=== PATIENT | male | born 1940 | race Two or more races ===

== ENCOUNTER 2023-01-06 16:17 | Inpatient (IN) | payer OTHER ==
[~2023-01-06] VITALS: Ht 172.7 cm; Wt 54.4 kg
[2023-01-06] MEDS ORDERED: NOREPINEPHRINE 8MG/250ML PMX 250 ML IV STA ×2 (16:28→16:42)
[2023-01-06] MEDS ORDERED: PHENYLEPHRINE 50 MG in DEXT 5% WATER 245 ML IV STA ×2 (16:28→16:42)
[2023-01-06] MEDS ORDERED: PIPERACILLIN/TAZ 3.375G PREMIX 50 ML IV ONE (16:30)
[2023-01-06] MEDS ORDERED: DEXTROSE 5% WATER 1,000 ML IV ONE (16:30)
[2023-01-06] MEDS ORDERED: SODIUM CHLORIDE 0.9% 1000ML BAG (SEPSIS BOLUS) IV ONE (16:30)
[2023-01-06] MEDS ORDERED: PIPERACILLIN/TAZ 3.375G PREMIX 50 ML IV NR (16:30)
[2023-01-06] MEDS ORDERED: VANCOMYCIN 1G PREMIX 200 ML IV NR (16:30)
[2023-01-06] MEDS ORDERED: HYDROCORTISONE SOD SUCCINATE 100 MG/2 ML VIAL IV ONE (16:30)
[2023-01-06] MEDS ORDERED: VANCOMYCIN 1G PREMIX 200 ML IV ONE (16:30)
[2023-01-06] MEDS ORDERED: DEXTROSE 50% WATER 50ML SYRINGE IV ONE (16:45)
[2023-01-06] MEDS ORDERED: MIDAZOLAM 100MG/100ML PMX 100 ML IV PRN (16:45)
[2023-01-06] MEDS ORDERED: FENTANYL 2500MCG/250ML PMX 250 ML IV ONE ×2 (16:45)
[2023-01-06] MEDS ORDERED: FENTANYL CITRATE/PF 50MCG/ML 2ML VIAL IV ONE (16:45)
[2023-01-06] MEDS ORDERED: NOREPINEPHRINE 8 MG in DEXTROSE 5% WATER 250 ML IV SCH (17:00)
[2023-01-06 17:16] LABS: BG BASE EXCESS -12.5 mmol/L (-2.0-2.0); BG CARBOXYHEMOGLOBIN 0.3 % (0.5-1.5); BG DEOXYHEMOGLOBIN 0.2 % (0.0-5.0); BG FRACTION INSPIRED OXYGEN 100; BG METHEMOGLOBIN 0.2 % (0.0-1.5); BG OXYGEN SATURATION 99.8 % (92.0-98.5); BG OXYHEMOGLOBIN 99.3 % (94.0-97.0); BG PCO2 23.9 mmHg (35.0-45.0); BG PH 7.318 (7.350-7.450); BG PO2 409.6 mmHg (75.0-100.0); BG SAMPLE SITE RIGHT RADIAL; BG VENT MODE VENT - AC
[2023-01-06 18:18] LABS: HEMATOCRIT. 36.1 % (42.0-52.0); HEMOGLOBIN. 12.1 g/dL (14.0-18.0); MEAN CORPUSCULAR HEMOGLOBIN 29.7 pg (28.0-32.0); MEAN CORPUSCULAR VOLUME 88.9 fL (80.0-94.0); MEAN PLATELET VOLUME 7.8 fl (7.4-10.4); PLATELET 98 x1000/uL (130-400); RED BLOOD CELL COUNT 4.06 mill/uL (4.7-6.1); RED CELL DISTRIBUTION WIDTH 16.4 % (11.6-14.6)
[2023-01-06 18:20] LABS: CHLORIDE 87 mEq/L (98-107)
[2023-01-06 18:45] LABS: ETHANOL BLOOD < 10 mg/dL
[2023-01-06 19:08] LABS: PROTHROMBIN TIME 17.5 sec (9.6-11.0)
[2023-01-06 19:09] LABS: D-DIMER > 35.20 mg/L FEU (<0.50); INR 1.7
[2023-01-06 19:36] LABS: PLATELET ESTIMATE NORMAL
[2023-01-06] MEDS ORDERED: CLONIDINE 0.1MG TABLET PO PRN (20:15)
[2023-01-06] MEDS ORDERED: INSULIN LISPRO 100 UNITS/ML SUBCUT NR (20:15)
[2023-01-06] MEDS ORDERED: ACETAMINOPHEN 325MG TABLET PO PRN ×2 (20:15)
[2023-01-06] MEDS ORDERED: DEXTROSE 50% WATER 50ML SYRINGE IV PRN (20:15)
[2023-01-06] MEDS ORDERED: SODIUM BICARBONATE 8.4% 1 MEQ/ML 50ML SYR IV NR (20:15)
[2023-01-06] MEDS ORDERED: INSULIN LISPRO 100 UNITS/ML SUBCUT SCH (21:00)
[2023-01-06] MEDS ORDERED: METHYLPREDNISOLONE SOD SUCC 125 MG/2 ML VIAL IV SCH (21:00)
[2023-01-06 21:15] LABS: T4 FREE 1.63 ng/dL (0.76-1.46)
[2023-01-06 21:37] LABS: VITAMIN B12 SERUM 1151 pg/mL (211-911)
[2023-01-06 21:53] LABS: FERRITIN 1526 ng/mL (22-322)
[2023-01-06] MEDS: HYDROCORTISONE SOD SUCCINATE 100 MG/2 ML VIAL IV SCH (22:15)
[2023-01-06 22:26] LABS: CORTISOL > 75.0 ucg/dL
[2023-01-06 22:34] LABS: CLARITY URINE TURBID (CLEAR); COLOR URINE YELLOW (YELLOW); KETONES URINE NEGATIVE (NEGATIVE); LEUKOCYTE ESTERASE URINE 3+ (NEGATIVE); NITRITE URINE NEGATIVE (NEGATIVE); OCCULT BLOOD URINE 3+ (NEGATIVE); PROTEIN URINE 3+ (NEGATIVE); SPECIFIC GRAVITY URINE 1.011 (1.005-1.030); UROBILINOGEN URINE 0.2 E.U./dL (0.2-1.0)
[2023-01-06 22:39] LABS: SODIUM URINE RANDOM 90 mEq/L
[2023-01-06] MEDS: BLOOD SUGAR DIAGNOSTIC STRIP TEST SCH (22:45)
[2023-01-06] MEDS ORDERED: IOHEXOL-300 100 ML BOTTLE ONE (22:50)
[2023-01-06] MEDS: CEFEPIME 2,000 MG in DEXT 5% WATER 100 ML IV SCH (23:40)
[2023-01-07] VITALS (97 sets, daily range): BP systolic 57–162; BP diastolic 20–100
[2023-01-07 00:21] LABS: CREATINE KINASE MB FRACTION 159.1 ng/mL (0.5-3.6)
[2023-01-07] MEDS: DEXT 5%/0.9% NACL 1,000 ML IV SCH (01:58)
[2023-01-07 02:20] LABS: BG BASE EXCESS -10.4 mmol/L (-2.0-2.0); BG CARBOXYHEMOGLOBIN 0.8 % (0.5-1.5); BG FRACTION INSPIRED OXYGEN 100; BG HCO3 ACT 12.3 mmol/L (22.0-26.0); BG METHEMOGLOBIN 0.1 % (0.0-1.5); BG OXYHEMOGLOBIN 99.1 % (94.0-97.0); BG PCO2 20.9 mmHg (35.0-45.0); BG PH 7.388 (7.350-7.450); BG PO2 406.8 mmHg (75.0-100.0); BG SAMPLE SITE RIGHT FEMORAL; BG TOTAL HEMOGLOBIN 13.6 g/dL (12.0-18.0); BG TOTAL RESPIRATORY RATE 21 b/min; BG VENT MODE VENT - AC
[2023-01-07 02:24] LABS: CHLORIDE 87 mEq/L (98-107)
[2023-01-07] MEDS ORDERED: SODIUM BICARBONATE 8.4% 1 MEQ/ML 50ML SYR IV NR (02:45)
[2023-01-07] MEDS ORDERED: AZITHROMYCIN 500 MG in DEXT 5% WATER 250 ML IV SCH (03:00)
[2023-01-07] MEDS: PROPOFOL 10MG/ML 100ML 100 ML IV PRN ×2 (03:02→17:38)
[2023-01-07] MEDS: AZITHROMYCIN 500 MG in DEXT 5% WATER 250 ML IV SCH (03:24)
[2023-01-07 05:49] LABS: HEMATOCRIT. 39.3 % (42.0-52.0); HEMOGLOBIN. 13.3 g/dL (14.0-18.0); MEAN CORPUSCULAR HEMOGLOBIN 29.6 pg (28.0-32.0); MEAN CORPUSCULAR VOLUME 87.5 fL (80.0-94.0); MEAN PLATELET VOLUME 7.4 fl (7.4-10.4); PLATELET 76 x1000/uL (130-400); RED BLOOD CELL COUNT 4.49 mill/uL (4.7-6.1)
[2023-01-07] MEDS: HYDROCORTISONE SOD SUCCINATE 100 MG/2 ML VIAL IV SCH ×3 (05:55→20:49)
[2023-01-07 06:07] LABS: CHLORIDE 85 mEq/L (98-107)
[2023-01-07] MEDS: BLOOD SUGAR DIAGNOSTIC STRIP TEST SCH ×4 (06:27→20:49)
[2023-01-07 06:31] LABS: BETA HYDROXYBUTYRATE 0.1 mMol/L (0.0-0.3); CREATINE KINASE MB FRACTION 139.1 ng/mL (0.5-3.6); HDL CHOLESTEROL 53 mg/dL (40-59); LDL CHOLESTEROL 25 mg/dL (5-100)
[2023-01-07] MEDS: PHENYLEPHRINE 100 MG in DEXT 5% WATER 240 ML IV PRN ×2 (06:37→16:57)
[2023-01-07 06:41] LABS: CREATINE KINASE 6395 IU/L (39-308)
[2023-01-07 08:59] LABS: BG BASE EXCESS -7.1 mmol/L (-2.0-2.0); BG CARBOXYHEMOGLOBIN 1.3 % (0.5-1.5); BG DEOXYHEMOGLOBIN 0.5 % (0.0-5.0); BG FRACTION INSPIRED OXYGEN 50; BG HCO3 ACT 14.6 mmol/L (22.0-26.0); BG METHEMOGLOBIN 0.1 % (0.0-1.5); BG OXYGEN SATURATION 99.5 % (92.0-98.5); BG OXYHEMOGLOBIN 98.1 % (94.0-97.0); BG PCO2 21.8 mmHg (35.0-45.0); BG PH 7.445 (7.350-7.450); BG PO2 179.8 mmHg (75.0-100.0); BG SAMPLE SITE RIGHT BRACHIAL; BG TOTAL HEMOGLOBIN 14.6 g/dL (12.0-18.0); BG VENT MODE VENT - AC
[2023-01-07] MEDS ORDERED: ASPIRIN 81MG EC TABLET PO SCH (09:00)
[2023-01-07] MEDS ORDERED: ENOXAPARIN 30MG/0.3ML SYR SUBCUT SCH (09:00)
[2023-01-07 09:08] LABS: PLATELET ESTIMATE DECREASED
[2023-01-07] MEDS: IPRATROPIUM/ALBUTEROL 0.5-3(2.5)MG/3ML NEB NEB SCH ×3 (09:10→21:18)
[2023-01-07 09:17] LABS: *AMPHETAMINES SCREEN URINE NEGATIVE (NEGATIVE); *BARBITURATES SCREEN URINE NEGATIVE (NEGATIVE); *BENZODIAZEPINES SCREEN URINE NEGATIVE (NEGATIVE); *COCAINE SCREEN URINE NEGATIVE (NEGATIVE); CANNABINOID URINE SCREEN NEGATIVE (NEGATIVE); METHADONE URINE SCREEN NEGATIVE (NEGATIVE); OPIATES URINE SCREEN NEGATIVE (NEGATIVE); PHENCYCLIDINE URINE SCREEN NEGATIVE (NEGATIVE)
[2023-01-07] MEDS: FAMOTIDINE 20MG/2ML VIAL IV SCH (09:46)
[2023-01-07 12:44] LABS: T4 FREE 1.93 ng/dL (0.76-1.46)
[2023-01-07] MEDS: METRONIDAZOLE 500MG TABLET PO SCH ×2 (13:09→20:49)
[2023-01-07] MEDS ORDERED: SODIUM CHLORIDE 3% 250 ML IV ONE (15:00)
[2023-01-07] MEDS: CEFEPIME 2,000 MG in DEXT 5% WATER 100 ML IV SCH (22:46)
[2023-01-07] MEDS ORDERED: AMIKACIN SULFATE 500 MG in SODIUM CHLORIDE 0.9% 100 ML IV NR (23:00)
[2023-01-08] VITALS (96 sets, daily range): BP systolic 91–149; BP diastolic 55–93
[2023-01-08] MEDS: AZITHROMYCIN 500 MG in DEXT 5% WATER 250 ML IV SCH (02:24)
[2023-01-08] MEDS: IPRATROPIUM/ALBUTEROL 0.5-3(2.5)MG/3ML NEB NEB SCH ×4 (02:42→20:17)
[2023-01-08] MEDS: PROPOFOL 10MG/ML 100ML 100 ML IV PRN ×2 (03:00→13:37)
[2023-01-08] MEDS: DEXT 5%/0.9% NACL 1,000 ML IV SCH (03:00)
[2023-01-08] MEDS: PHENYLEPHRINE 100 MG in DEXT 5% WATER 240 ML IV PRN ×2 (03:36→13:36)
[2023-01-08] MEDS: METRONIDAZOLE 500MG TABLET PO SCH ×3 (05:00→21:49)
[2023-01-08] MEDS: HYDROCORTISONE SOD SUCCINATE 100 MG/2 ML VIAL IV SCH ×3 (05:00→21:49)
[2023-01-08 05:23] LABS: HEMATOCRIT. 33.8 % (42.0-52.0); HEMOGLOBIN. 11.6 g/dL (14.0-18.0); MEAN CORPUSCULAR HEMOGLOBIN 29.5 pg (28.0-32.0); MEAN CORPUSCULAR VOLUME 86.5 fL (80.0-94.0); MEAN PLATELET VOLUME 7.9 fl (7.4-10.4); RED BLOOD CELL COUNT 3.91 mill/uL (4.7-6.1); RED CELL DISTRIBUTION WIDTH 16.6 % (11.6-14.6)
[2023-01-08] MEDS ORDERED: VANCOMYCIN HCL 1 GM/VIAL PO SCH (06:00)
[2023-01-08] MEDS: BLOOD SUGAR DIAGNOSTIC STRIP TEST SCH ×4 (06:30→20:59)
[2023-01-08 06:41] LABS: PLATELET 25 x1000/uL (130-400)
[2023-01-08] MEDS: LACTOBACILLUS GG CAPSULE PO SCH (08:34)
[2023-01-08] MEDS: FAMOTIDINE 20MG/2ML VIAL IV SCH (08:34)
[2023-01-08] MEDS: VANCOMYCIN 1000MG/20ML ORAL SOLN PO SCH ×2 (11:21→18:01)
[2023-01-08 11:49] LABS: PLATELET ESTIMATE MARKEDLY DECREASED
[2023-01-08 15:38] LABS: BG BASE EXCESS -9.9 mmol/L (-2.0-2.0); BG CARBOXYHEMOGLOBIN 0.3 % (0.5-1.5); BG DEOXYHEMOGLOBIN 0.6 % (0.0-5.0); BG FRACTION INSPIRED OXYGEN 40; BG HCO3 ACT 13.5 mmol/L (22.0-26.0); BG METHEMOGLOBIN 0.2 % (0.0-1.5); BG OXYGEN SATURATION 99.4 % (92.0-98.5); BG OXYHEMOGLOBIN 98.9 % (94.0-97.0); BG PCO2 23.8 mmHg (35.0-45.0); BG PH 7.373 (7.350-7.450); BG PO2 247.7 mmHg (75.0-100.0); BG SAMPLE SITE RIGHT RADIAL; BG TOTAL HEMOGLOBIN 12.3 g/dL (12.0-18.0); BG VENT MODE VENT - AC
[2023-01-08] MEDS: CITRIC ACID/SODIUM CITRATE SOLN 30ML UDC PO SCH ×2 (17:38→18:01)
[2023-01-08] MEDS: CEFEPIME 2,000 MG in DEXT 5% WATER 100 ML IV SCH (21:49)
[2023-01-09] VITALS (95 sets, daily range): BP systolic 89–130; BP diastolic 56–86
[2023-01-09] MEDS: PROPOFOL 10MG/ML 100ML 100 ML IV PRN ×2 (00:22→08:20)
[2023-01-09] MEDS: DEXT 5%/0.9% NACL 1,000 ML IV SCH (00:22)
[2023-01-09] MEDS: VANCOMYCIN 1000MG/20ML ORAL SOLN PO SCH ×4 (00:22→18:00)
[2023-01-09] MEDS: PHENYLEPHRINE 100 MG in DEXT 5% WATER 240 ML IV PRN (00:22)
[2023-01-09] MEDS: IPRATROPIUM/ALBUTEROL 0.5-3(2.5)MG/3ML NEB NEB SCH ×3 (02:00→14:53)
[2023-01-09] MEDS: AZITHROMYCIN 500 MG in DEXT 5% WATER 250 ML IV SCH (02:59)
[2023-01-09 05:40] LABS: HEMATOCRIT. 30.4 % (42.0-52.0); HEMOGLOBIN. 10.3 g/dL (14.0-18.0); MEAN CORPUSCULAR HEMOGLOBIN 29.1 pg (28.0-32.0); MEAN CORPUSCULAR VOLUME 86.1 fL (80.0-94.0); MEAN PLATELET VOLUME 8.8 fl (7.4-10.4); RED BLOOD CELL COUNT 3.53 mill/uL (4.7-6.1); RED CELL DISTRIBUTION WIDTH 16.7 % (11.6-14.6)
[2023-01-09 05:49] LABS: PLATELET 18 x1000/uL (130-400)
[2023-01-09] MEDS: BLOOD SUGAR DIAGNOSTIC STRIP TEST SCH ×4 (06:28→21:00)
[2023-01-09] MEDS: HYDROCORTISONE SOD SUCCINATE 100 MG/2 ML VIAL IV SCH ×3 (06:31→21:34)
[2023-01-09] MEDS: METRONIDAZOLE 500MG TABLET PO SCH ×3 (06:32→21:34)
[2023-01-09] MEDS ORDERED: POTASSIUM CHLORIDE IV ONE (08:00)
[2023-01-09] MEDS ORDERED: NACL IV ONE (08:00)
[2023-01-09] MEDS ORDERED: DEXT IV ONE (08:00)
[2023-01-09] MEDS: CITRIC ACID/SODIUM CITRATE SOLN 30ML UDC PO SCH ×2 (08:20→13:01)
[2023-01-09] MEDS: FAMOTIDINE 20MG/2ML VIAL IV SCH (08:20)
[2023-01-09 09:17] LABS: BG BASE EXCESS -5.6 mmol/L (-2.0-2.0); BG CARBOXYHEMOGLOBIN 0.4 % (0.5-1.5); BG DEOXYHEMOGLOBIN 0.8 % (0.0-5.0); BG FRACTION INSPIRED OXYGEN 40; BG HCO3 ACT 17.3 mmol/L (22.0-26.0); BG METHEMOGLOBIN 0.1 % (0.0-1.5); BG OXYGEN SATURATION 99.2 % (92.0-98.5); BG OXYHEMOGLOBIN 98.7 % (94.0-97.0); BG PCO2 26.1 mmHg (35.0-45.0); BG PEEP (cmH2O) 0 cmH2O; BG PH 7.439 (7.350-7.450); BG SAMPLE SITE RIGHT BRACHIAL; BG TOTAL HEMOGLOBIN 11.1 g/dL (12.0-18.0); BG VENT MODE VENT - AC
[2023-01-09 09:53] LABS: PLATELET ESTIMATE MARKEDLY DECREASED
[2023-01-09] MEDS: LACTOBACILLUS GG CAPSULE PO SCH (10:00)
[2023-01-09] MEDS ORDERED: POTASSIUM CHLORIDE INJ 40 MEQ in DEXT 5% WATER 250 ML IV ONE (10:15)
[2023-01-09] MEDS: MORPHINE SULFATE 250 MG in DEXT 5% WATER 225 ML IV PRN ×2 (17:06→23:54)
[2023-01-09] MEDS: CEFEPIME 2,000 MG in DEXT 5% WATER 100 ML IV SCH (21:34)
[2023-01-10] VITALS (37 sets, daily range): BP systolic 83–119; BP diastolic 36–63
[2023-01-10] MEDS: DEXT 5%/0.9% NACL 1,000 ML IV SCH (01:00)
[2023-01-10] MEDS: AZITHROMYCIN 500 MG in DEXT 5% WATER 250 ML IV SCH (02:07)
[2023-01-10] MEDS: MORPHINE SULFATE 250 MG in DEXT 5% WATER 225 ML IV PRN (05:36)
[2023-01-10] MEDS: METRONIDAZOLE 500MG TABLET PO SCH ×2 (06:00→14:00)
[2023-01-10] MEDS: HYDROCORTISONE SOD SUCCINATE 100 MG/2 ML VIAL IV SCH (06:00)
[2023-01-10] MEDS: BLOOD SUGAR DIAGNOSTIC STRIP TEST SCH ×3 (06:30→17:20)
[2023-01-10] MEDS: FAMOTIDINE 20MG/2ML VIAL IV SCH (09:00)
[2023-01-10] MEDS: LACTOBACILLUS GG CAPSULE PO SCH (09:00)
[2023-01-10 13:14] LABS: HEMATOCRIT. 35.1 % (42.0-52.0); HEMOGLOBIN. 11.7 g/dL (14.0-18.0); MEAN CORPUSCULAR HEMOGLOBIN 29.3 pg (28.0-32.0); MEAN CORPUSCULAR VOLUME 88.2 fL (80.0-94.0); MEAN PLATELET VOLUME 9.1 fl (7.4-10.4); RED BLOOD CELL COUNT 3.98 mill/uL (4.7-6.1); RED CELL DISTRIBUTION WIDTH 17.4 % (11.6-14.6)
[2023-01-10 13:30] LABS: PLATELET 18 x1000/uL (130-400)
[2023-01-10 14:00] LABS: PLATELET ESTIMATE MARKEDLY DECREASED
[2023-01-10] MEDS ORDERED: IPRATROPIUM BROMIDE (0.02%) 0.5MG/2.5ML NEB HHN SCH (18:00)
[2023-01-10] MEDS ORDERED: ALBUTEROL (0.083%) 2.5MG/3ML NEB HHN SCH (18:00)
[2023-01-10] MEDS: CEFEPIME 2,000 MG in DEXT 5% WATER 100 ML IV SCH (22:00)
[2023-01-11] MEDS: DEXT 5%/0.9% NACL 1,000 ML IV SCH (01:00)
[2023-01-11 07:54] LABS: HEMATOCRIT. 38.3 % (42.0-52.0); HEMOGLOBIN. 12.5 g/dL (14.0-18.0); MEAN CORPUSCULAR VOLUME 89.1 fL (80.0-94.0); MEAN PLATELET VOLUME 9.7 fl (7.4-10.4); RED CELL DISTRIBUTION WIDTH 17.4 % (11.6-14.6)
[2023-01-11 07:59] LABS: PLATELET 23 x1000/uL (130-400)
[2023-01-11 08:00] VITALS: BP 166/100
[2023-01-11] MEDS: MORPHINE SULFATE 250 MG in DEXT 5% WATER 225 ML IV PRN (10:20)
[2023-01-11 12:00] VITALS: BP 86/46
[2023-01-11] MEDS ORDERED: POTASSIUM CHLORIDE INJ 40 MEQ in DEXT 5% WATER 500 ML IV NR (12:00)
[2023-01-11 12:24] LABS: PLATELET ESTIMATE MARKEDLY DECREASED
[2023-01-11 16:00] VITALS: BP 79/40
[2023-01-12 12:00] VITALS: BP 171/135
[2023-01-12] MEDS: METRONIDAZOLE 500MG TABLET PO SCH (14:00)
[2023-01-12 16:00] VITALS: BP 92/50
[2023-01-12] MEDS: VANCOMYCIN 1000MG/20ML ORAL SOLN PO SCH (23:37)
[2023-01-13] VITALS: BP 116/59
[2023-01-13] MEDS: DEXT 5%/0.9% NACL 1,000 ML IV SCH (01:00)
[2023-01-13 04:00] VITALS: BP 111/53
[2023-01-13] MEDS: VANCOMYCIN 1000MG/20ML ORAL SOLN PO SCH ×2 (06:00→12:00)
[2023-01-13 08:00] VITALS: BP 111/55
[2023-01-13 12:00] VITALS: BP 116/61
[2023-01-13 15:47] VITALS: BP 107/55
[2023-01-14] MEDS: DEXT 5%/0.9% NACL 1,000 ML IV SCH (01:00)
[2023-01-14 08:00] VITALS: BP 125/59
[2023-01-14 12:00] VITALS: BP 114/58
[2023-01-14 16:00] VITALS: BP 114/62
[2023-01-14] MEDS: MORPHINE SULFATE 250 MG in DEXT 5% WATER 225 ML IV PRN (16:46)
[2023-01-14 20:00] VITALS: BP 118/58
[2023-01-14 22:00] VITALS: BP 116/56
[2023-01-15] VITALS (9 sets, daily range): BP systolic 103–141; BP diastolic 45–62
[2023-01-15] MEDS: DEXT 5%/0.9% NACL 1,000 ML IV SCH (18:00)
[2023-01-16] VITALS: BP 103/50
[2023-01-16] MEDS: DEXT 5%/0.9% NACL 1,000 ML IV SCH (01:00)
[2023-01-16 05:00] VITALS: BP 116/56
[2023-01-16 08:00] VITALS: BP 130/61
[2023-01-16 12:00] VITALS: BP 124/63
[2023-01-16 16:00] VITALS: BP 113/57
[2023-01-16 20:00] VITALS: BP 108/59
[2023-01-17] VITALS: BP 115/55
[2023-01-17] MEDS: DEXT 5%/0.9% NACL 1,000 ML IV SCH (01:00)
[2023-01-17 04:00] VITALS: BP 123/65
[2023-01-17 08:00] VITALS: BP 114/59
[2023-01-17 12:00] VITALS: BP 100/70
[2023-01-17 16:00] VITALS: BP 126/64
[2023-01-17 20:00] VITALS: BP 111/57
[2023-01-18] VITALS: BP 115/59
[2023-01-18] MEDS: DEXT 5%/0.9% NACL 1,000 ML IV SCH (01:00)
[2023-01-18 04:00] VITALS: BP 113/61
[2023-01-18 08:00] VITALS: BP 97/55
[2023-01-18 12:00] VITALS: BP 100/60
[2023-01-18 16:00] VITALS: BP 98/44
[2023-01-18] MEDS ORDERED: MORPHINE SULFATE 250 MG in DEXT 5% WATER 225 ML IV PRN (19:15)
[2023-01-18 20:00] VITALS: BP 98/52
[2023-01-19] VITALS: BP 95/52
[2023-01-19] MEDS: DEXT 5%/0.9% NACL 1,000 ML IV SCH (01:00)
[2023-01-19 04:00] VITALS: BP 94/50
[2023-01-19 08:00] VITALS: BP 96/51
[2023-01-19 12:00] VITALS: BP 86/45
[2023-01-19 16:00] VITALS: BP 81/52
[2023-01-19 20:00] VITALS: BP 69/42
[2023-01-20] VITALS: BP 85/49
[2023-01-20] MEDS: DEXT 5%/0.9% NACL 1,000 ML IV SCH (00:53)
[2023-01-20 04:00] VITALS: BP 64/43
[2023-01-20] MEDS: MORPHINE SULFATE 250 MG in DEXT 5% WATER 225 ML IV SCH (04:57)
[2023-01-20 08:00] VITALS: BP 83/48
[2023-01-20 12:00] VITALS: BP 81/44
[2023-01-20 16:00] VITALS: BP 84/47
[2023-01-20 20:00] VITALS: BP 86/47
[2023-01-21] VITALS: BP 83/48
[2023-01-21] MEDS: DEXT 5%/0.9% NACL 1,000 ML IV SCH (01:00)
[2023-01-21 04:00] VITALS: BP 83/46
[2023-01-21 08:00] VITALS: BP 90/50
[2023-01-21 12:00] VITALS: BP 91/40
[2023-01-21 16:00] VITALS: BP 80/44
[2023-01-21 20:00] VITALS: BP 89/49
[2023-01-22] MEDS: DEXT 5%/0.9% NACL 1,000 ML IV SCH (04:10)
[2023-01-22 08:00] VITALS: BP 102/54
[2023-01-22 12:00] VITALS: BP_SYST 81; BP_SYST 90; BP_DIAS 44; BP_DIAS 45
[2023-01-22 16:00] VITALS: BP 81/44
[2023-01-22 20:00] VITALS: BP 96/49
[2023-01-23] VITALS: BP 80/41
[2023-01-23 04:00] VITALS: BP 79/45
[2023-01-23 08:00] VITALS: BP 91/48
[2023-01-23] MEDS: MORPHINE SULFATE 250 MG in DEXT 5% WATER 225 ML IV SCH (11:04)
[2023-01-23 11:57] VITALS: BP 86/46
[2023-01-23 16:00] VITALS: BP 86/45
[2023-01-23 20:00] VITALS: BP 79/45
[2023-01-24 04:00] VITALS: BP 67/38
[2023-01-24 06:00] VITALS: BP 84/43
[2023-01-24] MEDS: DEXT 5%/0.9% NACL 1,000 ML IV SCH (07:05)
[2023-01-24 08:00] VITALS: BP 84/47
[2023-01-24 11:59] VITALS: BP 86/50
[2023-01-24 16:00] VITALS: BP 92/48
[2023-01-24 19:53] VITALS: BP 81/40
[2023-01-25] MEDS: DEXT 5%/0.9% NACL 1,000 ML IV SCH (00:12)
[2023-01-25 01:18] VITALS: BP 112/38
[2023-01-25 08:00] VITALS: BP 82/40
[2023-01-25 12:00] VITALS: BP 77/37
[2023-01-25 20:00] VITALS: BP 63/26
== END 2023-01-25 23:50 | DRG 871 ==
LOC: ER 16:21 → EDBD 19:08 → MICUNO 19:08 → EDBEDREQSVC 19:12 → EDBEDREQ 19:12 → ENRESERV 20:02 → MICUSO 01-08 06:44 → 6EST 01-10 15:00
PROVIDERS: ADMIT Hospitalist; ATTEND Hospitalist
PROC: 0BH17EZ Insertion of Endotracheal Airway into Trachea, Via Natural or Artificial Opening (ICD-10-PCS; principal; 2023-01-06)
PROC: 5A1945Z Respiratory Ventilation, 24-96 Consecutive Hours (ICD-10-PCS; 2023-01-06)
PROC: 0T2BX0Z Change Drainage Device in Bladder, External Approach (ICD-10-PCS; 2023-01-06)
PROC: 02HV33Z Insertion of Infusion Device into Superior Vena Cava, Percutaneous Approach (ICD-10-PCS; 2023-01-07)
PROC: B548ZZA Ultrasonography of Superior Vena Cava, Guidance (ICD-10-PCS; 2023-01-07)
DX: A41.59 Other Gram-negative sepsis (principal); E43 Unspecified severe protein-calorie malnutrition; J96.00 Acute respiratory failure, unspecified whether with hypoxia or hypercapnia; N17.0 Acute kidney failure with tubular necrosis; R65.21 Severe sepsis with septic shock; J11.08 Influenza due to unidentified influenza virus with specified pneumonia; I21.4 Non-ST elevation (NSTEMI) myocardial infarction; G92.8 Other toxic encephalopathy; J15.6 Pneumonia due to other Gram-negative bacteria; A04.72 Enterocolitis due to Clostridium difficile, not specified as recurrent; D68.59 Other primary thrombophilia; I31.39 Other pericardial effusion (noninflammatory); E87.20 Acidosis, unspecified; C79.51 Secondary malignant neoplasm of bone; E87.1 Hypo-osmolality and hyponatremia; I47.1 Supraventricular tachycardia; J90 Pleural effusion, not elsewhere classified; M62.82 Rhabdomyolysis; N13.6 Pyonephrosis; I42.0 Dilated cardiomyopathy; Z68.1 Body mass index [BMI] 19.9 or less, adult; T83.098A Other mechanical complication of other urinary catheter, initial encounter; D63.8 Anemia in other chronic diseases classified elsewhere; Z66 Do not resuscitate; Z20.822 Contact with and (suspected) exposure to COVID-19; C61 Malignant neoplasm of prostate; E87.6 Hypokalemia; E87.5 Hyperkalemia; E16.2 Hypoglycemia, unspecified; Z51.5 Encounter for palliative care
CPT/HCPCS: 31500; 36415; 36573; 36600; 71045; 71275; 76770; 80048; 80053; 80061; 80305; 80320; 81003; 82010; 82040; 82375; 82530; 82533; 82550; 82553; 82607; 82728; 82746; 82805; 82962; 82977; 83036; 83540; 83550; 83605; 83735; 83880; 83930; 83935; 84134; 84145; 84153; 84300; 84439; 84443; 84478; 84480; 84484; 85025; 85379; 86850; 86900; 87070; 87077; 87186; 87426; 87493; 87804; 93005; 93306; 93970; 94002; 94003; 94640; 99291; A6261; C1725; C9803; J0278; J0456; J0692; J1720; J2270; J2370; J2543; J2704; J3010; J3370; J3480; J3490; J7030; J7042; J7050; J7060; J7070; Q9967; A4315; G0103; G0480